=== PATIENT | male | born 1990 | race American Indian/Alaskan Native ===

== ENCOUNTER 2017-09-26 04:11 | Emergency (ER) | payer OTHER ==
[2017-09-26 04:57] LABS: Hematocrit 49.2 % (35.5-45.6); Hemoglobin 16.2 gm/dl (11.8-15.2); Mean Corpuscular HGB Conc 33 % (32-34); Mean Corpuscular Hemoglobin 32 pg (28-32); Mean Corpuscular Volume 96 fl (84-94); Platelet Count 316 K/mm3 (140-440); Red Blood Count 5.14 M/mm3 (3.65-5.03); Red Cell Distribution Width 14.7 % (13.2-15.2)
[2017-09-26 05:04] LABS: Bilirubin,Urine NEG (Negative); Blood,Urine LG (Negative); Color,Urine Straw (Yellow); Nitrite,Urine NEG (Negative); Protein,Urine <15 mg/dL mg/dL (Negative); Urobilinogen,Urine < 2.0 mg/dL (<2.0); WBC,Urine < 1.0 /HPF (0.0-6.0)
[2017-09-26 05:05] LABS: INR 1.06 (0.87-1.13)
[2017-09-26 05:06] LABS: Partial Thromboplastin Time 42.8 Sec. (24.2-36.6)
[2017-09-26 05:07] LABS: RBC,Urine < 1.0 /HPF (0.0-6.0)
[2017-09-26 05:10] LABS: Benzodiazepines Screen,Urine PRESUMPTIVE NEGATIVE; Cannabinoid Screen,Urine PRESUMPTIVE NEGATIVE; Methadone Screen,Urine PRESUMPTIVE NEGATIVE; Opiate Screen,Urine PRESUMPTIVE NEGATIVE
[2017-09-26 05:14] LABS: BUN/Creatinine Ratio 9; Blood Urea Nitrogen 12 mg/dL (9-20); Calcium 8.3 mg/dL (8.4-10.2); Hemolysis Index 131
[2017-09-26 05:17] LABS: Alanine Aminotransferase 36 units/L (7-56)
--- NOTE | 2017-09-26 05:21 | Cat Scan Report ---
FINAL REPORT EXAM: CT HEAD/BRAIN WO CON HISTORY: trauma TECHNIQUE: Routine axial imaging was obtained of the brain without IV contrast. FINDINGS: The ventricular system is appropriate in size and is symmetric. There is no evidence of acute stroke or hemorrhage. The basal cisterns appear normal. The visualized sinuses are clear. The mastoid air cells are well pneumatized. The calvarium appears intact. IMPRESSION: No acute intracranial process.
[2017-09-26 05:24] LABS: Amphetamine Screen,Urine PRESUMPTIVE POSITIVE; Cocaine Screen,Urine PRESUMPTIVE POSITIVE
--- NOTE | 2017-09-26 05:33 | Cat Scan Report ---
FINAL REPORT EXAM: CT FACIAL BONES WO CON HISTORY: trauma TECHNIQUE: Routine axial imaging was obtained of the facial bones without IV contrast with sagittal and coronal reconstructions. FINDINGS: There is extensive left-sided preseptal soft tissue swelling extending to the left pre frontal area and overlying the nasal bone and left zygomatic arch. There are several mildly depressed fractures of the left side of the nasal bone. The orbital rims and floors appear intact. The sinuses reveal minimal secretions in the right sphenoid sinus. The zygomatic arches and mandible appear intact. The visualized mastoid air cells are well pneumatized there is deviation of the nasal septum right of midline. IMPRESSION: Several mildly depressed left-sided nasal bone fractures with overlying soft tissue swelling. Extensive left-sided preseptal soft tissue swelling with swelling extending along the left pre frontal area and overlying the left zygomatic arch. No additional facial bone fractures identified.
--- NOTE | 2017-09-26 05:37 | Cat Scan Report ---
FINAL REPORT EXAM: CT CERVICAL SPINE WO CON HISTORY: trauma TECHNIQUE: Routine axial imaging was obtained of the cervical spine without IV contrast. Sagittal and coronal reconstructions were reviewed. FINDINGS: The disc heights and alignment are well maintained. The canal size is normal. The nerve roots exit normally. There is no evidence of fracture. The prevertebral soft tissues and C1-C2 articulation appear intact. IMPRESSION: Within normal limits.
[2017-09-26 05:38] LABS: Band Neutrophils # (Manual) 1.6 K/mm3; Basophils % (Manual) 0 % (0.0-1.8); Eosinophils % (Manual) 0 % (0.0-4.3); Platelet Clumps Rare; Platelet Estimate Consistent w Auto; Total Cells Counted 100
--- NOTE | 2017-09-26 05:54 | XRay Report ---
FINAL REPORT EXAM: XR SHOULDER 2+V LT HISTORY: trauma shoulder pain TECHNIQUE: Four views of the left shoulder were submitted. FINDINGS: There is no evidence of fracture or soft tissue injury. The AC joint and glenohumeral joint appear intact. IMPRESSION: Within normal limits.
--- NOTE | 2017-09-26 06:08 | XRay Report ---
FINAL REPORT EXAM: XR CHEST 1V AP HISTORY: trauma TECHNIQUE: A portable upright view of the chest was obtained. FINDINGS: Heart size and mediastinum appear normal. The lungs are clear. Pleural fluid is not seen. The bones and soft tissues are well maintained. IMPRESSION: Within normal limits.
[2017-09-26] MEDS ORDERED: BOOSTRIX IM ONE (06:56)
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
[2017-09-26] MEDS ORDERED: NACL 0.9% 1000 ML 1,000 ML IV ONE ×2 (07:00)
[2017-09-26] MEDS ORDERED: XYLOCAINE 2% INFILTRATI ONE (07:04)
[2017-09-26] MEDS ORDERED: NACL 0.9% 500 ML IR ONE (07:09)
[2017-09-26] MEDS ORDERED: ANCEF/STERILE WATER 2 GM/20 ML 2 GM/20 ML SYRINGE IV ONE (07:35)
[2017-09-26 09:27] LABS: BUN/Creatinine Ratio 11; Blood Urea Nitrogen 14 mg/dL (9-20); Calcium 8.1 mg/dL (8.4-10.2); Hemolysis Index 26
[2017-09-26 10:09] VITALS: BP 138/82
== END 2017-09-26 10:11 ==
LOC: EEVIPCON 04:11 → ED 04:11
DX: S01.01XA Laceration without foreign body of scalp, initial encounter (principal); S01.511A Laceration without foreign body of lip, initial encounter; S46.912A Strain of unspecified muscle, fascia and tendon at shoulder and upper arm level, left arm, initial encounter; S02.2XXA Fracture of nasal bones, initial encounter for closed fracture; F17.200 Nicotine dependence, unspecified, uncomplicated; F15.10 Other stimulant abuse, uncomplicated; F14.10 Cocaine abuse, uncomplicated; Y08.89XA Assault by other specified means, initial encounter; Y93.89 Activity, other specified; Y99.8 Other external cause status; Y92.009 Unspecified place in unspecified non-institutional (private) residence as the place of occurrence of the external cause
CPT/HCPCS: 12002; 12013; 36415; 70450; 70486; 71045; 72125; 73030; 80048; 80053; 80307; 81001; 82550; 85007; 85025; 85610; 85730; 86850; 86900; 86901; 90471; 90715; 93005; 93010; 96361; 96374; 99284; G0480; J0690; J7030; 80320